=== PATIENT | female | born 1950 | race Caucasian/White ===

== ENCOUNTER 2016-05-22 11:54 | Emergency (ER) | payer OTHER ==
[~2016-05-22] VITALS: Ht 157.5 cm; Wt 69.0 kg
[~2016-05-22 11:54] MED LIST: BENA20TA48 PO; GLIP5TAB13 PO; IMIT25 PO; METF-382 PO; SIMV5TAB50 PO; SITA50TA2 PO; VIT B12 PO; VIT D3 PO
[2016-05-22 11:58] VITALS: Ht 157.5 cm; Wt 69.0 kg
--- NOTE | 2016-05-22 13:41 | ERD ---
ER Documentation Chief Complaint Date/Time DATE: 05/22/16 TIME: 13:40 Chief Complaint pt bib self with c/o "bump" and pain to right turk area HPI 66-year-old female who states that one month ago, she had a mechanical slip and fall and developed a contusion on the lower extremity. She has been placing ice on the extremity is been feeling much better but she continues to have some discomfort in the area where she hurt herself. She reports no numbness, tingling, loss of function. ROS All systems reviewed and are negative except as per history of present illness. Medications Home Meds Reported Medications [Vit D3] No Conflict Check, 1999 PO DAILY 03/17/16 [Vit B12] No Conflict Check, PO DAILY 03/17/16 Sumatriptan Succinate* (Imitrex*) 25 Mg Tablet, 25 MG PO Y for HEADACHE, TAB May repeat after 2 hours if needed; MAX 200 mg/24 hours 03/17/16 Benazepril Hcl* (Benazepril Hcl*) 20 Mg Tablet, 20 MG PO DAILY, #30 TAB 07/31/15 Sitagliptin* (Januvia*) 50 Mg Tablet, 50 MG PO DAILY, #30 TAB 07/31/15 Simvastatin* (Simvastatin*) 5 Mg Tablet, 40 MG PO QHS, #30 TAB 07/31/15 Metformin Hcl* (Metformin Hcl*) 500 Mg Tablet, 1000 MG PO BID WITH MEALS, #30 TAB 07/31/15 Glipizide* (Glipizide*) 5 Mg Tablet, 5 MG PO BID, TAB 07/31/15 Allergies Allergies: Coded Allergies: No Known Drug Allergies (Verified Allergy, Mild, 07/31/15) PMhx/Soc History of Surgery: Yes (CHOLECYSTECTOMY) Anesthesia Reaction: No Hx Neurological Disorder: No Hx Respiratory Disorders: No Hx Cardiac Disorders: Yes (HTN,DYSLIPIDEMIA) Hx Psychiatric Problems: No Hx Miscellaneous Medical Probl: No Hx Alcohol Use: No Hx Substance Use: No Hx Tobacco Use: No FmHx Noncontributory for chief complaint Physical Exam Vitals Vital Signs Date Time Temp Pulse Resp B/P Pulse Ox O2 Delivery O2 Flow Rate FiO2 05/22/16 11:58 98.3 68 18 119/65 98 Physical Exam General: Well-developed well-nourished in no distress Extremity: Lower extremity in the area of the tib-fib, the area of concern was examined in detail. There is evidence of a minimal residual contusion but no evidence of infection. No evidence of acute trauma Patient is neurovascularly intact. Normal tendon function is noted proximal and distal to the injury. No evidence of infection is noted. Compartments are soft and compressible. Skin is intact. Procedures/MDM Patient was taken to a room, seen and examined Medical decision making: At this time this is a 66-year-old female presented with a residual contusion but no evidence of fracture infection or other high- risk concerns. Overall, patient is clinically well and appropriate for outpatient care. Departure Diagnosis: Primary Impression: Contusion Condition: Stable Patient Instructions: Contusion, Lower Extremity HAN HWANG May 22, 2016 13:41
== END 2016-05-22 13:40 | disposition home or self-care (01) ==
LOC: FTE 11:54
DX: S80.11XA Contusion of right lower leg, initial encounter (principal); I10 Essential (primary) hypertension; E11.9 Type 2 diabetes mellitus without complications; W01.0XXA Fall on same level from slipping, tripping and stumbling without subsequent striking against object, initial encounter; Y92.9 Unspecified place or not applicable; Z79.84 Long term (current) use of oral hypoglycemic drugs
CPT/HCPCS: 99282

== ENCOUNTER 2017-05-20 13:31 | Emergency (ER) | END 2017-05-20 15:07 | disposition home or self-care (01) ==

== ENCOUNTER 2018-11-21 06:56 | Emergency (ER) | payer MEDICARE, OTHER ==
[~2018-11-21] VITALS: Ht 157.5 cm; Wt 72.5 kg
[~2018-11-21 06:56] MED LIST changes: +ALBU8.5H8 INH; +BENA20TA4 PO; -BENA20TA48 PO; +BENZ-6 PO; +CEPH-443 PO; -IMIT25 PO; +LEVO500T48 PO; -METF-382 PO; +METF100010 PO; +METF500T24 PO; +ONDA4TAB8 PO; +OSEL75CA23 PO; +PRED20TA PO; +SIMV40TA3 PO; +SIMV5TAB14 PO; -SIMV5TAB50 PO; +SUMA25TA34 PO
[2018-11-21 07:00] VITALS: Ht 157.5 cm; Wt 72.5 kg
[2018-11-21] MEDS ORDERED: ONDANSETRON 4 MG INJ IV STA (11:19)
[2018-11-21] MEDS ORDERED: SOD CHLORIDE 0.9% 1,000 ML IV STA (11:19)
--- NOTE | 2018-11-21 11:22 | ERD ---
ER Documentation Chief Complaint Chief Complaint dizziness since yesterday (feels like room is spinning) HPI This is a 68-year-old woman complaining of intermittent dizziness since yesterday, room spinning sensation lasting for a few hours. She states she has had similar episodes in the past sometimes associated with nausea and vomiting although she denies vomiting today or yesterday. She denies slurred speech, no headache or blurry vision, no complaints of chest pain or shortness of breath, no weight loss, no dysuria ROS All systems reviewed and are negative except as per history of present illness. Medications Home Meds Active Scripts Cephalexin* (Keflex*) 500 Mg Capsule, 500 MG PO QID for 5 Days, CAP Prov:KAVON GMOEZ MD 11/21/18 Ondansetron Hcl* (Zofran*) 4 Mg Tablet, 4 MG PO Q8H PRN for NAUSEA AND/OR VOMITING, #30 TAB Prov:KAVON GOMEZ MD 11/21/18 Reported Medications Simvastatin (Simvastatin) 40 Mg Tablet, 40 MG PO QHS, #30 TAB 11/21/18 Metformin Hcl* (Metformin Hcl*) 1,000 Mg Tablet, 1000 MG PO BID WITH MEALS, #60 TAB 11/21/18 Glipizide* (Glipizide*) 5 Mg Tablet, 5 MG PO BID, TAB 11/21/18 Sitagliptin* (Januvia*) 50 Mg Tablet, 50 MG PO DAILY, #30 TAB 11/21/18 Benazepril Hcl* (Benazepril Hcl*) 20 Mg Tablet, 20 MG PO DAILY, #30 TAB 11/21/18 Discontinued Reported Medications [Vit D3] No Conflict Check, 1999 PO DAILY 03/17/16 [Vit B12] No Conflict Check, PO DAILY 03/17/16 Sumatriptan Succinate* (Imitrex*) 25 Mg Tablet, 25 MG PO PRN for HEADACHE, TAB May repeat after 2 hours if needed; MAX 200 mg/24 hours 03/17/16 Benazepril Hcl* (Benazepril Hcl*) 20 Mg Tablet, 20 MG PO DAILY, #30 TAB 07/31/15 Sitagliptin* (Januvia*) 50 Mg Tablet, 50 MG PO DAILY, #30 TAB 07/31/15 Simvastatin* (Simvastatin*) 5 Mg Tablet, 40 MG PO QHS, #30 TAB 07/31/15 Metformin Hcl* (Metformin Hcl*) 500 Mg Tablet, 1000 MG PO BID WITH MEALS, #30 TAB 07/31/15 Glipizide* (Glipizide*) 5 Mg Tablet, 5 MG PO BID, TAB 07/31/15 Discontinued Scripts Benzonatate* (Tessalon Perle*) 100 Mg Capsule, 100 MG PO Q8H PRN for COUGH, #20 CAP Prov:PASILABANCHERYL F 05/20/17 Oseltamivir Phosphate* (Tamiflu*) 75 Mg Capsule, 75 MG PO BID for 5 Days, CAP Prov:PASILABAN,CHERYL F 05/20/17 Levofloxacin* (Levaquin*) 500 Mg Tablet, 500 MG PO DAILY for 7 Days, TAB Prov:PASILABAN,CHERYL F 05/20/17 Prednisone* (Prednisone*) 20 Mg Tab, 40 MG PO DAILY for 4 Days, TAB Prov:PASILABAN,CHERYL F 05/20/17 Albuterol Sulfate* (Proair HFA*) 8.5 Gm Hfa.aer.ad, 2 PUFF INH Q4, #1 INHALER Prov:CHERYL TRUJILLO F 05/20/17 Allergies Allergies: Coded Allergies: No Known Drug Allergies (Unverified Allergy, Mild, 11/21/18) PMhx/Soc History of stroke without neurologic deficits, discontinued aspirin many years ago, hypertension, obesity, diabetes mellitus History of Surgery: Yes (CHOLECYSTECTOMY) Anesthesia Reaction: No Hx Neurological Disorder: No Hx Respiratory Disorders: No Hx Cardiac Disorders: Yes (HTN,DYSLIPIDEMIA) Hx Psychiatric Problems: No Hx Miscellaneous Medical Probl: No Hx Alcohol Use: No Hx Substance Use: No Hx Tobacco Use: No FmHx Family History: diabetes Physical Exam Vitals Vital Signs Date Temp Pulse Resp B/P (MAP) Pulse Ox O2 O2 Flow FiO2 Time Delivery Rate 11/21/18 98.3 92 18 162/81 97 07:00 (108) Physical Exam GENERAL: Well-developed, well-nourished, well-hydrated, in no apparent distress, looks nontoxic in appearance HEENT: Moist mucous membranes, pink conjunctiva, no cervical spine tenderness or step-off deformities, no goiter, no jaundice or icterus, extraocular movements intact without pain. No submandibular induration, and no pharyngeal erythema NEURO: Alert and oriented 3, cranial nerves II through XII intact bilaterally, pupils equal round reactive to light, no focal deficits or facial asymmetry, sensation intact distally Strength 5/5 in upper and lower extremities bilaterally CARDIAC: Regular rate and rhythm, no murmurs rubs or gallops LUNGS: Clear bilaterally no wheezing crackles or stridor ABDOMEN: Soft nontender, no guarding, no rigidity, no rebound, no psoas sign no obturator sign. Normoactive bowel sounds SKIN: Warm and dry to touch, no abrasions, contusions, or hematomas, no lacerations, no ecchymosis, no target lesions, and without ulcers EXTREMITIES: No clubbing cyanosis or edema, calves are bilaterally symmetrical, no Homans sign, no popliteal cord sign. Distal pulses equal and bilateral PSYCH: Normal affect without agitation or irritability Result Diagram: 11/21/18 1144 11/21/18 1144 Results 24 hrs Laboratory Tests Test 11/21/18 11:44 White Blood Count 7.0 10^3/ul Red Blood Count 5.63 10^6/ul Hemoglobin 14.7 g/dl Hematocrit 45.4 % Mean Corpuscular Volume 80.6 fl Mean Corpuscular Hemoglobin 26.1 pg Mean Corpuscular Hemoglobin Concent 32.4 g/dl Red Cell Distribution Width 13.5 % Platelet Count 246 10^3/UL Mean Platelet Volume 11.3 fl Immature Granulocytes % 0.700 % Neutrophils % 53.7 % Lymphocytes % 40.1 % Monocytes % 3.6 % Eosinophils % 1.3 % Basophils % 0.6 % Nucleated Red Blood Cells % 0.0 /100WBC Immature Granulocytes # 0.050 10^3/ul Neutrophils # 3.8 10^3/ul Lymphocytes # 2.8 10^3/ul Monocytes # 0.3 10^3/ul Eosinophils # 0.1 10^3/ul Basophils # 0.0 10^3/ul Nucleated Red Blood Cells # 0.0 10^3/ul Urine Color STRAW Urine Clarity SLIGHTLY CLOUDY Urine pH 5.0 Urine Specific [place] 1.016 Urine Ketones NEGATIVE mg/dL Urine Nitrite NEGATIVE mg/dL Urine Bilirubin NEGATIVE mg/dL Urine Urobilinogen NEGATIVE mg/dL Urine Leukocyte Esterase NEGATIVE Tomas/ul Urine Microscopic RBC 0 /HPF Urine Microscopic WBC 3 /HPF Urine Squamous Epithelial Cells FEW /HPF Urine Mucus FEW /HPF Urine Hemoglobin NEGATIVE mg/dL Urine Glucose 3+ mg/dL Urine Total Protein NEGATIVE mg/dl Sodium Level 143 mmol/L Potassium Level 4.5 mmol/L Chloride Level 106 mmol/L Carbon Dioxide Level 25 mmol/L Anion Gap 12 Blood Urea Nitrogen 13 mg/dl Creatinine 0.57 mg/dl Est Glomerular Filtrat Rate mL/min > 60 mL/min Glucose Level 325 mg/dl Calcium Level 10.2 mg/dl Total Bilirubin 0.4 mg/dl Direct Bilirubin 0.00 mg/dl Indirect Bilirubin 0.4 mg/dl Aspartate Amino Transf (AST/SGOT) 32 IU/L Alanine Aminotransferase (ALT/SGPT) 36 IU/L Alkaline Phosphatase 78 IU/L Troponin I < 0.012 ng/ml Total Protein 7.9 g/dl Albumin 4.8 g/dl Globulin 3.10 g/dl Albumin/Globulin Ratio 1.54 Lipase 117 U/L Current Medications Medications Dose Sig/Salima Start Time Status Last (Trade) Ordered Route PRN Stop Time Admin Dose Reason Admin Sodium 1,000 ml @ Q1H STAT 11/21/18 DC 11/21/18 Chloride 1,000 mls/hr IV 11:19 11/21/18 11:39 12:18 Ondansetron 4 mg ONCE STAT 11/21/18 DC 11/21/18 HCl (Zofran IV 11:11/21/18 11:38 Inj) 11:20 Procedures/MDM IV line was established patient was placed on egg packer rhythm strip revealed a sinus rhythm at about 80 bpm with upright P and T waves. Patient was afebrile EKG performed, read by me: 86 bpm, normal sinus rhythm, normal axis, no acute ST segment changes, narrow QRS complex, with good R-wave progression in precordial leads. I administered 1 L normal saline IV, and Zofran 4 mg IV for dizziness. CBC and electrolytes are normal, liver function tests are normal, troponin was negative, urine analysis is equivocal with slight elevated urine WBCs, given her dizziness I will prescribe her oral antibiotics. Patient's dizziness completely resolved with IV fluids and Zofran, she looks well, and her neurologic exam was repeated and remains normal. Differential diagnoses considered, included but not limited to acute coronary s yndrome, pulmonary embolism, aortic dissection, abdominal aortic aneurysm, sepsis, stroke, meningitis, encephalitis, pneumonia, appendicitis, cholecystitis, bowel obstruction, pyelonephritis, nephrolithiasis, cystitis, as well as metabolic, hematologic, and electrolyte abnormalities. As well as absc ess, cellulitis, fractures, and dislocations. Patient feels much better at this time, and vital signs are normal, symptoms have improved. I did give strict instructions to return to the ED if symptoms continue or worsen, patient will otherwise follow-up with primary care physician. Patient understood instructions and agreed to plan. Disclaimer: Inadvertent spelling and grammatical errors are likely due to EHR/dictation software use and do not reflect on the overall quality of patient care. Also, please note that the electronic time recorded on this note does not necessarily reflect the actual time of the patient encounter. Departure Diagnosis: Primary Impression: Dizziness Condition: Good KAVON GOMEZ MD Nov 21, 2018 11:22
[2018-11-21 13:35] VITALS: BP 132/81; PULSE 72; RESP 16
== END 2018-11-21 13:35 | disposition home or self-care (01) ==
LOC: E/R 06:56
DX: R42 Dizziness and giddiness (principal); R11.2 Nausea with vomiting, unspecified; I10 Essential (primary) hypertension; E11.9 Type 2 diabetes mellitus without complications; E66.9 Obesity, unspecified; Z68.29 Body mass index [BMI] 29.0-29.9, adult; Z86.73 Personal history of transient ischemic attack (TIA), and cerebral infarction without residual deficits; Z79.84 Long term (current) use of oral hypoglycemic drugs
CPT/HCPCS: 36415; 80053; 81001; 83690; 84484; 85025; 93005; 96361; 96374; 99284; J2405; J7030; 81003